=== PATIENT | male | born 1975 | race Caucasian/White ===

== ENCOUNTER 2018-08-11 08:02 | Outpatient (RCR) | payer BC, OTHER ==
[~2018-08-11 08:02] MED LIST: BISO1TAB4; HYDR1TAB PO
== END 2018-08-15 08:37 | disposition home or self-care (01) ==
PROVIDERS: ATTEND Orthopaedic Surgery Sports Medicine
DX: M25.562 Pain in left knee (principal); Z98.890 Other specified postprocedural states

== ENCOUNTER 2021-11-25 05:35 | Outpatient (CLI) | payer OTHER ==
[~2021-11-25] VITALS: Ht 180.3 cm; Wt 90.4 kg
[2021-11-25] MEDS ORDERED: BISO-3 PO (15:18)
[2021-11-25] MEDS ORDERED: ASCO100024 PO (15:18)
[2021-11-25] MEDS ORDERED: CALC600T91 PO (15:18)
== END 2021-11-25 15:39 | disposition home or self-care (01) ==
LOC: PREOP 05:35
PROVIDERS: ATTEND Surgery
DX: Z01.818 Encounter for other preprocedural examination (principal)

== ENCOUNTER 2022-01-06 07:33 | Day surgery (SDC) | payer OTHER ==
[~2022-01-06] VITALS: Ht 180.3 cm; Wt 90.4 kg
[~2022-01-06 07:33] MED LIST changes: +ASCO100024 PO; +BISO-3 PO; +CALC600T91 PO
[2022-01-06] MEDS ORDERED: LACTATED RINGERS 1,000 ML IV ONE (07:42)
[2022-01-06] MEDS ORDERED: LACTATED RINGERS 1,000 ML IV STA (07:43)
[2022-01-06 07:50] VITALS: BP 162/91
[2022-01-06] MEDS ORDERED: PROPOFOL INJECTION 50 ML IV ONE (08:23)
--- NOTE | 2022-01-06 08:53 | Anesthesia-General Post-Op ---
MAC Patient Condition Mental Status/LOC: Same as Preop Cardiovascular: Satisfactory Nausea/Vomiting: Absent Respiratory: Satisfactory Pain: Controlled Complications: Absent Post Op Complications Complications None Follow Up Care/Instructions Patient Instructions None needed. Anesthesiology Discharge Order Discharge Order Patient is doing well, no complaints, stable vital signs, no apparent adverse anesthesia problems. No complications reported per nursing. RODRIGO MUSA CRNA Jan 06, 2022 08:53
--- NOTE | 2022-01-06 08:54 | Progress Note-Post Operative ---
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
[2022-01-06 08:55] VITALS: BP 125/69
--- NOTE | 2022-01-06 08:57 | Discharge Inst-Simple/Standard ---
Discharge Inst-Standard Patient Instructions/Follow Up Plan of Care/Instructions/FU: 10 years Addi. If family hx of colon cancer 5 years. Any issues before that be seen at that time. Activity as Tolerated: Yes Discharge Diet: Regular Diet KRYS ALCANTAR DO Jan 06, 2022 08:57
[2022-01-06 08:59] VITALS: BP 110/69
[2022-01-06 09:00] VITALS: BP 106/71
[2022-01-06 09:30] VITALS: BP 116/78
--- NOTE | 2022-01-06 16:32 | OPERATIVE REPORT ---
DATE OF SERVICE: 01/06/2022 PREOPERATIVE DIAGNOSIS: Screening colonoscopy. POSTOPERATIVE DIAGNOSIS: Normal colon. PROCEDURE: Colonoscopy. SURGEON: Krys Fontana DO ANESTHESIA: Per STEAM CLEANING MACHINE OPERATOR. ESTIMATED BLOOD LOSS: None. COMPLICATIONS: None. INDICATIONS: The patient is a 46-year-old male needing screening colonoscopy. He understands risks and benefits of procedure and wished to proceed. Consent was signed in the chart. DESCRIPTION OF PROCEDURE: The patient was taken to the endoscopy suite, placed in left lateral recumbent position. Timeout was performed. Digital rectal exam was performed. No palpable polyps, masses or ulcerations. Scope was inserted in the rectum and advanced all the way to cecum with minimal difficulty. Prep was adequate. Scope was slowly retracted back. No polyps, masses or ulcerations in the cecum, ascending, transverse, descending and sigmoid colon. Once in the rectum, scope was retroflexed noting no other pathology. Scope was returned to its normal position, slowly withdrawn until completely removed. The patient tolerated procedure well without any complications, taken to recovery room in stable condition. RECOMMENDATIONS: The patient will need repeat colonoscopy in 10 years unless family history of colon cancer, which would then be 5 years. Any issues before that be seen at that time for reevaluation. Job ID: [id number] DocumentID: [id number] Dictated Date: 01/06/2022 08:58:55 [employer] Senior Sergeant Date: 01/06/2022 13:53:24 Dictated By: KRYS FONTANA DO
== END 2022-01-06 09:40 | disposition home or self-care (01) ==
LOC: ENDO 07:33
PROVIDERS: ATTEND Surgery
DX: Z12.11 Encounter for screening for malignant neoplasm of colon (principal); I10 Essential (primary) hypertension; Z79.899 Other long term (current) drug therapy; Z90.89 Acquired absence of other organs; Z90.81 Acquired absence of spleen; Z87.891 Personal history of nicotine dependence